=== PATIENT | female | born 1990 | race Hispanic/Latino ===

== ENCOUNTER 2018-11-02 07:02 | Inpatient (IN) | payer MEDICAID, SELFPAY ==
[2018-11-02] MEDS ORDERED: NS / Oxytocin 40 units/1000ml 1,000 ML IV PRN (07:42)
[2018-11-02] MEDS ORDERED: Docusate 100 MG CAP PO PRN (07:42)
[2018-11-02] MEDS ORDERED: Butorphanol Tartrate 1 MG/ML VIAL SLOW IVP PRN (07:42)
[2018-11-02] MEDS ORDERED: Carboprost 250 MCG/ML AMP IM PRN (07:42)
[2018-11-02] MEDS ORDERED: Promethazine HCl 25 MG/ML VIAL IM PRN (07:42)
[2018-11-02] MEDS ORDERED: Methylergonovine 0.2 MG/ML VIAL IM PRN (07:42)
[2018-11-02] MEDS ORDERED: Lidocaine 1% (PF) 30 ML VIAL SC PRN (07:42)
[2018-11-02] MEDS ORDERED: Acetaminophen 500 MG TAB PO PRN (07:42)
[2018-11-02] MEDS ORDERED: Ondansetron PF 4 MG/2 ML Vial IVP PRN (07:42)
[2018-11-02] MEDS ORDERED: Ibuprofen 800 MG TAB PO PRN (07:42)
[2018-11-02] MEDS ORDERED: Misoprostol 200 MCG TAB PR PRN (07:42)
[2018-11-02 07:45] VITALS: BMI 28.3
[2018-11-02] MEDS ORDERED: Lactated Ringer's 1,000 ML IV SCH (07:45)
[2018-11-02] MEDS ORDERED: Lidocaine 1% (PF) 30 ML VIAL ONE (07:51)
[2018-11-02] MEDS ORDERED: NS / Oxytocin 40 units/1000ml 1,000 ML ONE (07:51)
[2018-11-02 08:00] LABS: Hemoglobin 15.2 g/dL (12.0-16.0); Mean Corpuscular HGB CONC 35.1 g/dL (32.0-36.0); Mean Corpuscular Hemoglobin 31.7 pg (27.0-31.0); Mean Corpuscular Volume 90.3 fL (78.0-98.0); Mean Platelet Volume 9.6 fL (7.4-10.4); Platelet Count 167 thou/uL (130-400); RBC Distribution Width 12.6 % (11.5-14.5); Red Blood Cell (RBC) Count 4.79 mill/uL (4.20-5.40); White Blood Cell (WBC) Count 7.7 thou/uL (4.8-10.8)
[2018-11-02 08:42] LABS: HBSAg Index 0.23 S/CO (0-0.99); Hep B Surf Ag Non-Reactive S/CO (NonReactive); Syphilis Antibody Nonreactive (Nonreactive); Syphilis Antibody Index 0.04 S/CO (<1.00 Non-Reactive)
[2018-11-02] MEDS ORDERED: NS / Oxytocin 40 units/1000ml 1,000 ML IV SCH (09:28)
[2018-11-02] MEDS ORDERED: Bisacodyl 10 MG SUPP PR PRN (09:28)
[2018-11-02] MEDS ORDERED: Milk Of Magnesia 30 ML UDCUP PO PRN (09:28)
[2018-11-02] MEDS ORDERED: Lanolin Ointment 7 GM TUBE TOP PRN (09:28)
--- NOTE | 2018-11-02 09:30 | PDOC.LDHP ---
Labor and Delivery H&P Chief complaint: contractions HPI: Patient presented late to L&D. 27 yo @ 38.4 wks by 8.4 wk sono presented in labor. Contractions began at 0600 this morning. Denied LOF, bleeding, vaginal discharge. Denied any complications with this . Last clinic visit was yesterday and no concerns. While obtaining history, SROM with meconium. Current gestational age (weeks): 38 (38.4) Due date: 11/12/17 Dating criteria: first trimester ultrasound Grav: 3 Para: 1 OB History Details: 1 normal term in 2010 ectopic in 2016 - unsure which tube was removed. Current complications: none Abnormal US findings: No Current medications: pre-shazia vitamins Previous surgical history: surgery for ectopic (unsure which tube removed) Allergies/Adverse Reactions: Allergies Allergy/AdvReac Type Severity Reaction Status Date / Time No Known Allergies Allergy Unverified 11/02/18 07:47 Social history: none - Physical Exam Vital signs reviewed and normal: yes General: other (Painful contractions) Abdomen: gravid Extremeties: no edema FHT: category 1 - Vaginal Exam cm dilated: 10 Effacement: 100% Station: 2+ - OB Labs Blood type: A RH: positive Antibody Screen: negative HIV: negative RPR: negative HEPSAg: negative 1 hour GCT: negative (99) GBS: negative Urine drug screen: not done Rubella: immune Additional Labs: Quantiferon TB Gold positive Gonorrhea negative Chlamydia negative Zika negative Dengue fever IgG equivocal, IgM negative - Assessment L&D Assessment: term patient in labor - Plan Plan: admit to L&D -: Term in labor - orders placed - will prepare for delivery Positive Quant Gold - was discussed with health dept. They would not do CXR and recommended it be done at our clinic - CXR was obtained at [facility], appeared clear however official radiology read not completed due to lack of funding. - pt will need follow up to determine stage of TB Anemia of - Hgb 7.6 on 03/21/18 - on PNV PUPP - has history of abdominal rash throughout , reportedly improved with hydrocortisone cream Addendum - Attending - Attending Attestation Date/Time: 11/03/18 1105 I personally evaluated the patient and discussed the management with Dr. Olivia I agree with the History, Examination, Assessment and Plan documented above with any addition or exceptions noted below. H+P completed after delivery as patient delivered precipitously.
[2018-11-02] MEDS ORDERED: Hydrocortisone 1% Cream 30 GM TUBE TOP PRN (10:04)
[2018-11-02] MEDS: Ferrous Sulfate 325 MG TAB PO SCH (17:53)
[2018-11-02] MEDS: Docusate Calcium (SURFAK) 240 MG CAP PO SCH (21:49)
[2018-11-02] MEDS: Ibuprofen 800 MG TAB PO SCH (21:49)
[2018-11-03] MEDS: Ibuprofen 800 MG TAB PO SCH ×2 (05:55→14:55)
--- NOTE | 2018-11-03 06:22 | PDOC.PP ---
Post Progress Note Post Day #: 1 Subjective: 27 yo ->2 delivered @ 38.4 wks by . Has no concerns. Denies pain. Unsure of follow up label rewinder. Does not desire circumcision for baby. PO intake tolerated: yes Flatus: yes Ambulation: yes Vital Signs (12 hours) Temp Pulse Resp BP BP Pulse Ox 11/03/18 00:40 97.8 F 77 16 123/60 11/02/18 19:53 98.2 F 84 16 138/65 96 Weight Weight 65.771 kg - Physical Examination General: NAD Cardiovascular: no m/r/g, RRR Respiratory: clear to auscultation bilaterally, non-labored breathing Abdominal: + bowel sounds, no distention, appropriately TTP Fundus firm & at: umbilicus Extremities: negative homans (B) Neurological: no gross focal deficits Psychiatric: normal affect Result Diagrams: 11/03/18 06:56 Additional Labs: Post Labs Blood Type A POSITIVE 11/02/18 07:50 Hep Bs Antigen Non-Reactive S/CO (NonReactive) 11/02/18 07:50 (1) Vaginal delivery Code(s): O80 - ENCOUNTER FOR FULL-TERM UNCOMPLICATED DELIVERY Status: Acute - Assessment/Plan Day #1 - no complications, continue routine PP care Positive Quant Gold - was discussed with health dept. They would not do CXR and recommended it be done at our clinic - CXR was obtained at [facility], appeared clear however official radiology read not completed due to lack of funding. - pt will need follow up to determine stage of TB Anemia of - Hgb 7.6 on 03/21/18 - on PNV PUPP - has history of abdominal rash throughout , reportedly improved with hydrocortisone cream Dispo: pending baby bilirubin, possible d/c today Addendum - Attending - Attending Attestation Date/Time: 11/03/18 3180 I personally evaluated the patient and discussed the management with Dr. Olivia I agree with the History, Examination, Assessment and Plan documented above with any addition or exceptions noted below. Meeting appropriate milestones. Pt is requesting d/c to home today. 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 Must followup with health department. Can d/c to home today if baby is also stable to go.
[2018-11-03 06:52] VITALS: TEMP 97.5
[2018-11-03 07:08] LABS: Hemoglobin 13.3 g/dL (12.0-16.0); Mean Corpuscular HGB CONC 35.2 g/dL (32.0-36.0); Mean Corpuscular Hemoglobin 32.2 pg (27.0-31.0); Mean Corpuscular Volume 91.6 fL (78.0-98.0); Mean Platelet Volume 9.3 fL (7.4-10.4); Platelet Count 141 thou/uL (130-400); RBC Distribution Width 12.5 % (11.5-14.5); Red Blood Cell (RBC) Count 4.11 mill/uL (4.20-5.40); White Blood Cell (WBC) Count 9.2 thou/uL (4.8-10.8)
[2018-11-03 08:18] VITALS: BP 118/64
--- NOTE | 2018-11-03 08:58 | DN ---
DATE OF PROCEDURE: 11/02/2018 DELIVERING PHYSICIANS: 1. Dr. Olivia, PGY-1. 2. Dr. Thompson, PGY-2. SUPERVISING PHYSICIAN: Dr. Gruber, PGY-3. ATTENDING: Dr. Clinton Jamison. PROCEDURE PERFORMED: Spontaneous vaginal delivery. ANESTHESIA: Local for repair. ESTIMATED BLOOD LOSS: 300 mL. PREOPERATIVE DIAGNOSES: 1. Term intrauterine , in labor. 2. History of QuantiFERON-TB Gold positive TB test with negative chest x-ray latent TB. POSTOPERATIVE DIAGNOSES: 1. Term intrauterine , delivered. 2. History of QuantiFERON-TB Gold positive TB test with negative chest x-ray latent TB. INDICATIONS: A 27-year-old G3, P1-0-1-1, presents in active labor. DELIVERY NOTE: This is a 27-year-old female G3, P1-0-1-1 at 38-4/7th weeks, who delivered a viable male infant at 7:42. Following an uneventful antepartum course, a vigorous male was delivered over the intact perineum in the occiput anterior position. Anterior shoulder and remainder of the body delivered. No nuchal cord. The head was held down, and mouth and nares were bulb suctioned. It should be noted when she was ruptured, there was some thick meconium. Cord was clamped and cut and cord blood collected. Placenta delivered intact with 3-vessel cord noted. Final massage was performed and the fundus was firm. The cervix and vagina were inspected. There was found to be a second-degree vaginal wall laceration in the 5 o'clock position. Laceration was noted and repaired with 3-0 Vicryl in the usual fashion with good approximation and hemostasis after local anesthetic of lidocaine 10 mL was injected at site. went to Nursery in good condition for routine care, did require just a little bit of blow-by oxygen initially. Apgars were 8 and 8 at 1 and 5 minutes respectively. The patient tolerated the delivery well and went to after routine recovery/care. Job ID: [id number]
[2018-11-03] MEDS ORDERED: Adacel (T-DAP) 0.5 ML SYRINGE IM ONE (09:00)
[2018-11-03] MEDS: Docusate Calcium (SURFAK) 240 MG CAP PO SCH (10:06)
[2018-11-03] MEDS: Ferrous Sulfate 325 MG TAB PO SCH (10:09)
== END 2018-11-03 16:35 | disposition home or self-care (01) | DRG 807 ==
LOC: L&D/OP 07:02 → L&D 08:23 → 3SE 10:19
PROVIDERS: ADMIT Family Medicine; ATTEND Family Medicine
PROC: 10E0XZZ Delivery of Products of Conception, External Approach (ICD-10-PCS; principal; 2018-11-02)
PROC: 0KQM0ZZ Repair Perineum Muscle, Open Approach (ICD-10-PCS; 2018-11-02)
DX: O77.0 Labor and delivery complicated by meconium in amniotic fluid (principal); Z37.0 Single live birth; O62.3 Precipitate labor; O99.02 Anemia complicating childbirth; O26.86 Pruritic urticarial papules and plaques of pregnancy (PUPPP); O70.1 Second degree perineal laceration during delivery; R76.12 Nonspecific reaction to cell mediated immunity measurement of gamma interferon antigen response without active tuberculosis; D64.9 Anemia, unspecified; Z3A.38 38 weeks gestation of pregnancy
CPT/HCPCS: 36415; 85027; 86780; 86850; 86900; 86901; 87340; 99285; J2001